=== PATIENT | female | born 1985 | race American Indian/Alaskan Native ===

== ENCOUNTER 2018-06-29 14:37 | Emergency (ER) | payer OTHER ==
[2018-06-29 14:37] VITALS: BMI 34.1
[2018-06-29 15:00] VITALS: BP 123/74; PULSE 76; RESP 16; TEMP 98.1; O2SAT 100
--- NOTE | 2018-06-29 15:57 | ED PDOC ---
HPI: Female Pain Time Seen by Provider: 06/29/18 15:07 Chief Complaint (Nursing): Female Genitourinary Chief Complaint (Provider): Female Genitourinary History Per: Patient History/Exam Limitations: no limitations Onset/Duration Of Symptoms: Days (3x days) Current Symptoms Are (Timing): Still Present Severity: Moderate Additional Complaint(s): 32 year old female with a recent history of bacterial vaginosis (1x month ago) presents to the ED for an evaluation of vulvar irritation ongoing for 3x days. Patient reports that 4x days ago, she used Brito hair removal on her genital area, and 2x days ago, she developed itching and has felt a increase in moisture. Patient denies having abnormal vaginal discharge, abdominal pain, pelvic pain, vaginal bleeding, dysuria, and urinary frequency. PMD: Past Medical History Reviewed: Historical Data, Nursing Documentation, Vital Signs Vital Signs: Last Vital Signs Temp 98.1 F 06/29/18 14:57 Pulse 76 06/29/18 14:57 Resp 16 06/29/18 14:57 BP 123/74 06/29/18 14:57 Pulse Ox 100 06/29/18 14:57 SAMIRA Report Viewed: Yes - Medical History PMH: No Chronic Diseases Denies: Depression - Surgical History Surgical History: - Family History Family History: States: No Known Family Hx - Social History Current smoker - smoking cessation education provided: No Alcohol: Social Drugs: Denies - Home Medications Home Medications: Ambulatory Orders Medication Instructions Recorded oxyCODONE/Acetaminophen [Percocet 1 tab PO Q6 PRN #0 tab 06/04/15 5/325 mg Tab] metroNIDAZOLE 0.75% [Metrogel 1 ea TP QPM 5 Days tube 06/29/18 Cream] - Allergies Allergies/Adverse Reactions: Allergies Allergy/AdvReac Type Severity Reaction Status Date / Time No Known Allergies Allergy Verified 06/29/18 14:58 Review of Systems ROS Statement: Except As Marked, All Systems Reviewed And Found Negative Gastrointestinal: Negative for: Abdominal Pain Genitourinary Female: Positive for: Other (vulvar irritation (itchy and moist)). Negative for: Dysuria, Frequency, Vaginal Discharge, Vaginal Bleeding, Pelvic Pain Physical Exam - Reviewed Nursing Documentation Reviewed: Yes Vital Signs Reviewed: Yes - Physical Exam Appears: Positive for: Well, Non-toxic, No Acute Distress Head Exam: Positive for: ATRAUMATIC, NORMOCEPHALIC Skin: Positive for: Normal Color, Warm, Dry Gastrointestinal/Abdominal: Positive for: Normal Exam, Soft. Negative for: Ten derness Pelvic Exam: Positive for: Bimanual Exam Normal, Other (pelvic exam performed by me, Lucila (nurse) as outpatient admitting clerk). Negative for: External Exam Normal (mild vulvar erythema. (-) lesions, (-) ulcerations, (-) papules, (-) vesicles, (-) skin tears noted.), Speculum Exam Normal (mild amount of dark brown discharge in vaginal canal. cervix normal. (-) erythema.), Tender Adnexa Neurologic/Psych: Positive for: Alert, Oriented (3x) - ECG O2 Sat by Pulse Oximetry: 100 (RA) Pulse Ox Interpretation: Normal Medical Decision Making Medical Decision Makin:07 Initial impression: 32 year old female with vulvar irritation. Initial plan: * urine culture * genital culture * GC/chlamydia * urinalysis * reevaluation Patient advised that only mild vulvar irritation was noted, likely due to use of Brito, which is a strong chemical for sensitive areas. Patient advised to refrain from further use and to avoid tight fitting underwear and to keep the area dry. Patient advised to not use any creams or irritants. 16:17 Given patient's recent bout with bacterial vaginosis and appearance of vaginal discharge being abnormal for patient, Rx for metronidizole gel will be given for possible bacterial vaginosis. Patient advised to follow up with [facility]. Patient is stable for discharge home. Scribe Attestation: Documented Brandi Haley, acting as a scribe for Karyna Dozier PA-C. Provider Scribe Attestation: All medical record entries made by the Scribe were at my direction and personally dictated by me. I have reviewed the chart and agree that the record accurately reflects my personal performance of the history, physical exam, medical decision making, and the department course for this patient. I have also personally directed, reviewed, and agree with the discharge instructions and disposition. Disposition - Clinical Impression Clinical Impression: Female genitourinary symptoms - Disposition Referrals: Lety Gorman MD [Staff Provider] - Disposition Time: 16:17 Condition: STABLE Additional Instructions: F/u with hall cleaner if your symptoms worsen. Avoid using Brito or any irritating agents in your vaginal area until you feel better. Use Metronidazole gel for 5 nights. Prescriptions: metroNIDAZOLE 0.75% [Metrogel Cream] 1 ea TP QPM 5 Days tube Forms: [facility] (Comoran) Print Language: TURKMEN
[2018-06-29 16:01] LABS: SQUAMOUS EPITHIAL 2 /hpf (0-5); URINE BACTERIA RARE (<OCC); URINE BILIRUBIN NEGATIVE (NEGATIVE); URINE BLOOD NEGATIVE (NEGATIVE); URINE CLARITY SLIGHTY-CLOUDY (Clear); URINE COLOR YELLOW (YELLOW); URINE GLUCOSE (UA) NEG (NEGATIVE); URINE LEUKOCYTE ESTERASE NEG Leu/uL (Negative); URINE PROTEIN 30 mg/dL (NEGATIVE); URINE UROBILINOGEN 0.2-1.0 mg/dL (0.2-1.0)
== END 2018-06-29 16:23 | disposition home or self-care (01) ==
LOC: H.ER 14:37
DX: N76.0 Acute vaginitis (principal)